=== PATIENT | male | born 1940 | race Caucasian/White ===

== ENCOUNTER 2024-05-21 10:25 | Inpatient (IN) | payer MEDICARE ==
[~2024-05-21] VITALS: Ht 170.2 cm; Wt 63.5 kg
[2024-05-21] MEDS ORDERED: ACETAMINOPHEN 325 MG TABLET PO PRN (11:30)
[2024-05-21] MEDS ORDERED: MAGNESIUM HYDROXIDE 30 ML UDC PO PRN (11:30)
[2024-05-21] MEDS ORDERED: MAG HYDROX/AL HYDROX/SIMETH 30 ML UDC PO PRN (11:30)
[2024-05-21] MEDS ORDERED: KETO5DRO83 RIGHTEYE (11:43)
[2024-05-21] MEDS ORDERED: ATEN25TA PO (11:43)
[2024-05-21] MEDS ORDERED: ERYT3.5O9 EACHEYE (11:43)
[2024-05-21] MEDS ORDERED: IBUP-1490 PO (11:43)
[2024-05-21] MEDS ORDERED: LATA7.5D LEFTEYE (11:43)
[2024-05-21] MEDS ORDERED: LOSA50TA39 PO (11:43)
[2024-05-21] MEDS ORDERED: BRIM5DRO3 EACHEYE (11:43)
[2024-05-21] MEDS ORDERED: ALLO300T2 PO (11:43)
[2024-05-21] MEDS ORDERED: FLUO15OI TP (11:43)
[2024-05-21] MEDS: BLOOD SUGAR DIAGNOSTIC 1 EACH STRIP IN ONE (12:41)
[2024-05-21 16:00] VITALS: BP 120/68; TEMP 98.1; O2SAT 100
[2024-05-21] MEDS ORDERED: IBUPROFEN 400 MG TABLET PO PRN (17:30)
[2024-05-21] MEDS: ERYTHROMYCIN BASE OPHTH 3.5 GM TUBE EACHEYE SCH (18:50)
[2024-05-21 20:00] VITALS: BP 118/85; TEMP 97.7; O2SAT 97
[2024-05-21] MEDS: ATENOLOL 25 MG TABLET PO SCH (21:09)
[2024-05-21] MEDS: LATANOPROST EYE DROP 0.005% 2.5 ML BOTTLE LEFTEYE SCH (22:00)
[2024-05-21] MEDS ORDERED: LATANOPROST EYE DROP 0.005% 2.5 ML BOTTLE ONE (22:58)
[2024-05-22 08:00] VITALS: BP 120/93; TEMP 98.6; O2SAT 97
[2024-05-22 08:30] LABS: CHOLESTEROL 145 mg/dL (<200); HDL CHOLESTEROL 46 mg/dL (40-60); LDL 93 mg/dL (0-99); TRIGLYCERIDES 73 mg/dL (30-150)
[2024-05-22] MEDS: ALLOPURINOL 100 MG TABLET PO SCH (08:34)
[2024-05-22] MEDS: LOSARTAN POTASSIUM 50 MG TABLET PO SCH (08:34)
[2024-05-22 08:51] LABS: CALCIUM, SERUM 8.5 mg/dL (8.5-10.1); CREATININE 1.1 mg/dL (0.6-1.3); POTASSIUM 3.7 mmol/L (3.5-5.1)
[2024-05-22 08:57] LABS: ALBUMIN 3.1 g/dL (3.4-5.0); BILIRUBIN,TOTAL 1.4 mg/dL (0.2-1.0); TOTAL PROTEIN, SERUM 6.4 g/dL (6.4-8.2)
[2024-05-22] MEDS: KETOROLAC EYE 0.5% 3 ML BOTTLE RIGHTEYE SCH (09:00)
[2024-05-22] MEDS: FLUOCINONIDE 0.05% CREAM 30 GM TUBE TP SCH (09:00)
[2024-05-22] MEDS: BRIMONIDINE TARTRATE OPHT SOLN 5 ML BOTTLE OP SCH (09:56)
[2024-05-22] MEDS ORDERED: TEMAZEPAM 7.5 MG CAPSULE PO PRN (11:30)
[2024-05-22] MEDS ORDERED: LORAZEPAM 0.5 MG TABLET PO PRN (11:30)
[2024-05-22] MEDS ORDERED: VENLAFAXINE XR 75 MG CAP.SR.24H PO SCH (11:30)
[2024-05-22] MEDS: VENLAFAXINE XR 37.5 MG CAP.SR.24H PO SCH (13:57)
[2024-05-22 15:20] LABS: CREATININE 1.2 mg/dL (0.6-1.3)
[2024-05-22 16:00] VITALS: BP 102/75; TEMP 97.7; O2SAT 98
[2024-05-22 20:00] VITALS: BP 129/81; TEMP 98.4; O2SAT 96
[2024-05-22] MEDS: QUETIAPINE FUMARATE 25 MG TABLET PO SCH (21:32)
[2024-05-23 08:00] VITALS: BP 128/81; TEMP 98; O2SAT 98
[2024-05-23 16:00] VITALS: BP 121/82; TEMP 97.9; O2SAT 98
[2024-05-23 20:00] VITALS: BP 100/70; TEMP 98.2; O2SAT 96
[2024-05-24 08:00] VITALS: BP 132/81; TEMP 98; O2SAT 98
[2024-05-24 16:00] VITALS: BP_SYST 110; BP_SYST 98; BP_DIAS 62; BP_DIAS 64; TEMP 97.7; TEMP 98.7; O2SAT 100; O2SAT 95
[2024-05-24 19:52] VITALS: BP 105/70; TEMP 97.9; O2SAT 96
[2024-05-25 08:00] VITALS: BP 112/71; TEMP 98.7; O2SAT 98
[2024-05-25 16:00] VITALS: BP 102/74; TEMP 98.8; O2SAT 99
[2024-05-25 20:26] VITALS: BP 136/74; TEMP 97.9; O2SAT 99
[2024-05-26 08:00] VITALS: BP 109/74; TEMP 98; O2SAT 98
[2024-05-26 16:00] VITALS: BP 98/71; TEMP 97.9; O2SAT 100
[2024-05-26 20:51] VITALS: BP 115/73; TEMP 98.3; O2SAT 97
[2024-05-27 08:00] VITALS: BP 121/80; TEMP 98.2; O2SAT 96
[2024-05-27 08:27] VITALS: BP 121/80
== END 2024-05-27 15:30 | disposition home or self-care (01) | DRG 885 ==
LOC: GPS 10:25
PROVIDERS: ADMIT Psychiatry & Neurology Psychiatry; ATTEND Nurse Practitioner Acute Care
DX: F33.3 Major depressive disorder, recurrent, severe with psychotic symptoms (principal); F03.93 Unspecified dementia, unspecified severity, with mood disturbance; R45.851 Suicidal ideations; F41.9 Anxiety disorder, unspecified; M10.9 Gout, unspecified; I10 Essential (primary) hypertension; F29 Unspecified psychosis not due to a substance or known physiological condition; Z88.0 Allergy status to penicillin; Z73.6 Limitation of activities due to disability; H40.9 Unspecified glaucoma
CPT/HCPCS: 36415; 80053-TC; 80061-TC; 82565-TC; 82962-TC